=== PATIENT | male | born 1950 | race Caucasian/White ===

== ENCOUNTER 2018-09-17 14:12 | Emergency (ER) | payer MEDICARE, BC ==
[~2018-09-17] VITALS: Ht 180.3 cm; Wt 83.0 kg
[2018-09-17 14:37] VITALS: BP 124/85
[2018-09-17 15:09] LABS: BASOPHILS # (AUTO) 0.02 x10^3/uL (0-0.1); BASOPHILS % (AUTO) 0 % (0-1); EOSINOPHILS % (AUTO) 3 % (1-7); LYMPHOCYTES # (AUTO) 0.82 x10^3/uL (1-3.4); LYMPHOCYTES % (AUTO) 11 % (22-44); MD NO; MEAN CORPUSCULAR HEMOGLOBIN 31.4 pg (27.5-34.5); MEAN CORPUSCULAR HGB CONC 33.6 g/dL (33.2-36.2); MEAN CORPUSCULAR VOLUME 93.3 fL (81-97); MONOCYTES # (AUTO) 0.55 x10^3/uL (0.2-0.8); MONOCYTES % (AUTO) 7 % (2-9); NEUTROPHILS # (AUTO) 5.84 x10^3/uL (1.8-6.8); NEUTROPHILS % (AUTO) 79 % (42-75); PLATELET COUNT 227 x10^3/uL (130-400); RED BLOOD COUNT 4.61 x10^6/uL (4.38-5.82); RED CELL DISTRIBUTION WIDTH 13.6 % (9.4-14.8)
[2018-09-17 15:19] LABS: ALBUMIN 3.8 g/dL (3.4-5.0); ANION GAP 4 mmol/L (5-15); CALCIUM 8.4 mg/dL (8.5-10.1); CHLORIDE 110 mmol/L (98-107); CREATININE 1.13 mg/dL (0.7-1.3)
--- NOTE | 2018-09-17 16:23 | NUR ---
GOWN ON, CALL LIGHT AT BS, PT STATES HE DID HAVE A HARD PEBBLED STOOL WHILE WAITING IN THE LOBBY LAST ONE WAS A FEW DAYS AGO, HE QUIT TAKING STOOL SOFTNER 6 MONTHS AGO
== END 2018-09-17 17:54 | disposition home or self-care (01) ==
LOC: ED 17:00
DX: K59.00 Constipation, unspecified (principal)
CPT/HCPCS: 36415; 74021; 80048; 82040; 85025; 99284